=== PATIENT | male | born 1960 | race Caucasian/White ===

== ENCOUNTER 2023-08-02 02:05 | Day surgery (SDC) | payer BC, SELFPAY ==
[2023-07-24 09:23] VITALS: BMI 38.4
--- NOTE | 2023-07-31 12:13 | SUR.PREOP ---
Patient called regarding upcoming procedure. Reviewed preop instructions, appointment times, and procedure prep.
--- NOTE | 2023-08-01 13:56 | PM.HPGS ---
History of Present Illness History of Present Illness Consent: Risks, benefits, and alternatives have been discussed and questions answered. Patient agrees to proceed with procedure. Chief complaint: neoplasm screening Narrative: Marciano Simmons is a 62 year old male Referred for colon cancer screening. Review of Systems Review of Systems: All systems reviewed & are unremarkable except as noted in HPI and below PMFSH Past Medical History Medical History Dyslipidemia Environmental allergies Idiopathic gout Surgical History Surgical History No pertinent past surgical history Family History Family History Mother Hypertension Sibling Hypertension Other Family history of Alzheimer's disease Family history of lung cancer Social History Social History Smoking status: Former smoker Tobacco type: cigarettes Second hand tobacco smoke exposure: No Alcohol intake: never Substance use: never Substance use type: does not use Living arrangements: alone Occupation/Education: retired Gender identity (if verbalized by the patient): Male Sexual Orientation (if Verbalized by the Patient): Straight or Heterosexual Spiritual care concerns: No Meds Home Medications and Allergies Home Medications Medication Instructions Recorded Confirmed Type indomethacin 75 mg 75 mg PO BID PRN other 02/29/20 07/24/23 History capsule,extended release hydrochlorothiazide 25 mg tablet 25 mg PO DAILY #90 tabs 05/09/23 07/24/23 Rx allopurinol 300 mg tablet 300 mg PO DAILY #90 tabs 05/13/23 07/24/23 Rx Allergies Allergy/AdvReac Type Severity Reaction Status Date / Time No Known Allergies Allergy Verified 08/02/23 10:00 Exam Resp: Auscultation: clear to auscultation bilaterally Cardio: Rate: regular rate Rhythm: regular rhythm GI: GI Palp: Yes Soft to palpation and No Tenderness to palpation present (GI) Assessment and Plan Assessment and plan (1) Colon cancer screening: Code(s): Z12.11 - Encounter for screening for malignant neoplasm of colon Status: Acute Assessment and Plan: Colonoscopy with possible biopsy or polypectomy or cautery or injection of substances.
[2023-08-02 10:01] VITALS: BP 144/85; PULSE 83; RESP 20; TEMP 36.2; O2SAT 98; BMI 40.6
[2023-08-02] MEDS: LACTATED RINGERS 1,000 ML 150 ML IV CONT (10:16)
--- NOTE | 2023-08-02 10:30 | P.PNAN_ITS ---
Anes - Initial Pre Proc Eval Procedure: Operation Date: 08/02/23 11:15 Proposed Procedures p Colonoscopy - Harvey Navarro MD Date/Time: 08/02/23 10:30 Surgeon: Harvey Navarro MD Pre Op Diagnosis: neoplasm screening Patient Data Age: 62 Gender: M Height: 1.8 m Weight: 132 kg Last Vital Signs Temp 97.2 F L 08/02/23 10:01 Pulse 83 08/02/23 10:01 Resp 20 08/02/23 10:01 BP 144/85 H 08/02/23 10:01 Pulse Ox 98 08/02/23 10:01 O2 Del Method Room Air 08/02/23 10:01 Allergies Allergy/AdvReac Type Severity Reaction Status Date / Time No Known Allergies Allergy Verified 08/02/23 10:00 Home Medications Medication Instructions Recorded Confirmed Type indomethacin 75 mg 75 mg PO BID PRN other 02/29/20 07/24/23 History capsule,extended release hydrochlorothiazide 25 mg tablet 25 mg PO DAILY #90 tabs 05/09/23 07/24/23 Rx allopurinol 300 mg tablet 300 mg PO DAILY #90 tabs 05/13/23 07/24/23 Rx Patient hx anesthesia problems: none Family hx anesthesia problems: none Results Review: All pre-operative results and documents have been reviewed as part of the pre- operative evaluation. [facility] Past Medical History Medical History Dyslipidemia Environmental allergies Idiopathic gout Surgical History Surgical History No pertinent past surgical history Family History Family History Mother Hypertension Sibling Hypertension Other Family history of Alzheimer's disease Family history of lung cancer Social History Social History Smoking status: Former smoker Tobacco type: cigarettes Second hand tobacco smoke exposure: No Alcohol intake: never Substance use: never Substance use type: does not use Living arrangements: alone Occupation/Education: retired Gender identity (if verbalized by the patient): Male Sexual Orientation (if Verbalized by the Patient): Straight or Heterosexual Spiritual care concerns: No Anes - Eval Final PreProcedure Day of Procedure 08/02/23 10:30 Patient weight: morbidly obese Heart: regular rate and rhythm Lungs: clear to auscultation Airway: Mallampati scale class II Neurological: alert and oriented Last oral intake: >/= 8 hours ASA classification: III Emergent: no Anesthetic plan: proceed Anesthesia type and monitoring: general GIVS and standard monitoring Results Review: All pre-operative results and documents have been reviewed as part of the pre- operative evaluation. Informed Consent: The patient's anesthetic plan and its attendant risks and benefits were discussed with the patient/family/POA. Questions were solicited and answers provided to the satisfaction of the patient/family/POA.
[2023-08-02 11:18] VITALS: BP 138/84; PULSE 73; RESP 20; O2SAT 96
[2023-08-02 11:28] VITALS: BP 157/101; PULSE 68; RESP 20; O2SAT 96
[2023-08-02 11:38] VITALS: BP 160/90; PULSE 63; RESP 19; O2SAT 98
== END 2023-08-02 11:44 | disposition home or self-care (01) ==
PROVIDERS: PCP Family Medicine; Visit Provider Internal Medicine Gastroenterology
PROC: 0DJD8ZZ Inspection of Lower Intestinal Tract, Via Natural or Artificial Opening Endoscopic (ICD-10-PCS; CPT 45378; principal; 2023-08-02 11:15)
DX: Z12.11 Encounter for screening for malignant neoplasm of colon (principal); K57.30 Diverticulosis of large intestine without perforation or abscess without bleeding; D12.8 Benign neoplasm of rectum; M10.9 Gout, unspecified; Z87.891 Personal history of nicotine dependence; E66.01 Morbid (severe) obesity due to excess calories; Z68.41 Body mass index [BMI] 40.0-44.9, adult
CPT/HCPCS: 45385; 88305; J2704; J7120